=== PATIENT | female | born 1995 | race Caucasian/White ===

== ENCOUNTER 2017-11-25 12:25 | Emergency (ER) | payer OTHER, SELFPAY ==
[2017-11-25 12:42] VITALS: BP 102/59; PULSE 90; RESP 18; TEMP 36.6; O2SAT 100; BMI 21.9
--- NOTE | 2017-11-25 16:17 | ED.URI ---
HPI - URI/Sore Throat <YOUNG Mukherjee - Last Filed: 11/25/17 21:32> General Chief Complaint: Upper Respiratory Symptoms Stated Complaint: I have strep throat Time Seen by Provider: 11/25/17 16:19 Source: patient Mode of arrival: ambulatory Limitations: no limitations History of Present Illness HPI Narrative: 22-year-old female here for complaint of sore throat over the past couple of days. She denies any fevers or chills. She does report that some other people at were her work has similar symptoms. Positive p.o. intake. She states she is tolerating her own secretions. No shortness of breath. She denies any other concerns or complaints at this time. No rashes. MD Complaint: sore throat Related Data Previous Rx's Medication Instructions Recorded dexamethasone [Decadron] 4 mg PO Q12H #2 tab 11/25/17 Allergies Allergy/AdvReac Type Severity Reaction Status Date / Time No Known Drug Allergies Allergy Verified 11/25/17 12:46 Review of Systems <YOUNG Mukherjee - Last Filed: 11/25/17 21:32> Constitutional Denies chills, Denies fever(s), Denies lethargy and Denies weakness Eyes Denies change in vision, Denies eye discharge, Denies irritation and Denies loss of vision ENT Ears, Nose, Mouth, and Throat: Reports sore throat Cardiovascular Denies chest pain, Denies irregular heart rhythm, Denies lightheadedness, Denies palpitations, Denies dyspnea, Denies dyspnea on exertion and Denies orthopnea Respiratory Denies cough, Denies dyspnea, Denies dyspnea on exertion and Denies wheezing Gastrointestinal Gastrointestinal: Denies abdominal pain, Denies change in bowel habits, Denies diarrhea, Denies nausea and Denies vomiting Genitourinary Denies hematuria, Denies flank pain, Denies urinary incontinence and Denies urinary urgency Musculoskeletal Denies back pain, Denies muscle weakness, Denies numbness and Denies tingling Integumentary/Breasts Denies pruritus, Denies erythema, Denies rash and Denies wounds Neurologic Denies confusion, Denies loss of vision, Denies numbness, Denies tingling and Denies weakness Psychiatric Denies anxiety, Denies confusion, Denies depression, Denies homicidal ideation and Denies suicidal ideation Endocrine Denies palpitations Hematologic/Lymphatic Denies easy bruising Allergic/Immunologic Denies wheezing Exam <YOUNG Mukherjee - Last Filed: 11/25/17 21:32> Initial Vital Signs Initial Vital Signs: Vital Signs Temperature 97.8 F 11/25/17 12:42 Pulse Rate 90 11/25/17 12:42 Respiratory Rate 18 11/25/17 12:42 Blood Pressure 102/59 L 11/25/17 12:42 Pulse Oximetry 100 11/25/17 12:42 Const General: cooperative and well developed Nutritional Appearance: well nourished Orientation: alert, awake, oriented x3 and not confused HENVT Mouth: oral mucosae normal and moist mucous membranes Throat: posterior oropharynx abnormal (Erythema to oropharynx area. No exudate.) Eyes Conjunctivae: conjunctivae normal Sclera: sclerae normal Pupils: PERRL EOM: EOM intact bilaterally Resp Effort & Inspection: normal respiratory effort, able to speak in complete sentences, no respiratory distress and no use of accessory muscles Auscultation: clear to auscultation bilaterally, no rales, no rhonchi and no wheezes Cardio Rate: regular rate Rhythm: regular rhythm Heart Sounds: no click, no gallops, no murmurs and no rubs Pulses: normal peripheral pulses Skin General: no rashes or lesions noted, No jaundice and No petechiae Neuro General: alert, oriented x3, gait normal and no focal motor deficits Speech: speech normal <Denilson Larsen MD - Last Filed: 11/26/17 08:43> Initial Vital Signs Initial Vital Signs: Vital Signs Temperature 97.8 F 11/25/17 12:42 Pulse Rate 90 11/25/17 12:42 Respiratory Rate 18 11/25/17 12:42 Blood Pressure 102/59 L 11/25/17 12:42 Pulse Oximetry 100 11/25/17 12:42 Course <YOUNG Mukherjee - Last Filed: 11/25/17 21:32> Orders Ordered: Discontinued Medications Dexamethasone (Decadron) 4 mg PO NOW ONE Stop: 11/25/17 16:27 Last Admin: 11/25/17 16:43 Dose: Not Given Vital Signs - 8 hr 11/25/17 16:39 Pulse Rate 73 Respiratory Rate 15 Blood Pressure [Right Arm] 108/51 L Pulse Oximetry 99 <Denilson Larsen MD - Last Filed: 11/26/17 08:43> Orders Ordered: Discontinued Medications Dexamethasone (Decadron) 4 mg PO NOW ONE Stop: 11/25/17 16:27 Last Admin: 11/25/17 16:43 Dose: Not Given Vital Signs - 8 hr 11/25/17 16:39 Pulse Rate 73 Respiratory Rate 15 Blood Pressure [Right Arm] 108/51 L Pulse Oximetry 99 MDM - URI/Sore Throat <YOUNG Mukherjee - Last Filed: 11/25/17 21:32> [facility] Narrative Medical decision making narrative: Rapid strep test was obtained and was negative. Signs and symptoms presents as a viral illness. [id number] Tylenol or Motrin as needed for any discomfort. Patient requested further medications other than Tylenol or Motrin due to pain with talking she is given dexamethasone tablet today and 1 more for tomorrow 4 mg. Follow up with primary care provider later this week. Plenty of fluids and rest. Return emergency room for any worsening symptoms. Discharge Plan Departure Patient Disposition: Home Clinical Impression: Acute viral pharyngitis Discharge Date/Time: 11/25/17 16:43 Interventions: ED Discharge Assessment Last Done: 11/25/17 16:43 Instructions: DI for Viral Pharyngitis Activity Restrictions/Additional Instructions: Strep test was obtained today and was negative. Signs and symptoms presents as a viral pharyngitis. Use [id number] Tylenol Motrin as needed for any discomfort. Plenty of fluids and rest. Small amount of Decadron to steroid is prescribed use as directed for anti-inflammatory effects. Follow up with your doctor later this week for re-evaluation. For any worsening symptoms return to the emergency room. Prescriptions: New dexamethasone [Decadron] 4 mg tablet 4 mg PO Q12H Qty: 2 RF: 0 Referrals: [facility] [Provider Group] <Denilson Larsen MD - Last Filed: 11/26/17 08:43> Sign Out Provider Sign Out Attestation: The PA/MEAL MILLER functioned independently for the care of this pt, I was available, but not asked to participate in care. I am unable to determine appropriateness of management without personally examining the pt.
--- NOTE | 2017-11-25 16:31 | ED_ITS ---
HPI - URI/Sore Throat <YOUNG Mukherjee - Last Filed: 11/25/17 21:32> General Chief Complaint: Upper Respiratory Symptoms Stated Complaint: I have strep throat Time Seen by Provider: 11/25/17 16:19 Source: patient Mode of arrival: ambulatory Limitations: no limitations History of Present Illness HPI Narrative: 22-year-old female here for complaint of sore throat over the past couple of days. She denies any fevers or chills. She does report that some other people at were her work has similar symptoms. Positive p.o. intake. She states she is tolerating her own secretions. No shortness of breath. She denies any other concerns or complaints at this time. No rashes. MD Complaint: sore throat Related Data Previous Rx's Medication Instructions Recorded dexamethasone [Decadron] 4 mg PO Q12H #2 tab 11/25/17 Allergies Allergy/AdvReac Type Severity Reaction Status Date / Time No Known Drug Allergies Allergy Verified 11/25/17 12:46 Review of Systems <YOUNG Mukherjee - Last Filed: 11/25/17 21:32> Constitutional Denies chills, Denies fever(s), Denies lethargy and Denies weakness Eyes Denies change in vision, Denies eye discharge, Denies irritation and Denies loss of vision ENT Ears, Nose, Mouth, and Throat: Reports sore throat Cardiovascular Denies chest pain, Denies irregular heart rhythm, Denies lightheadedness, Denies palpitations, Denies dyspnea, Denies dyspnea on exertion and Denies orthopnea Respiratory Denies cough, Denies dyspnea, Denies dyspnea on exertion and Denies wheezing Gastrointestinal Gastrointestinal: Denies abdominal pain, Denies change in bowel habits, Denies diarrhea, Denies nausea and Denies vomiting Genitourinary Denies hematuria, Denies flank pain, Denies urinary incontinence and Denies urinary urgency Musculoskeletal Denies back pain, Denies muscle weakness, Denies numbness and Denies tingling Integumentary/Breasts Denies pruritus, Denies erythema, Denies rash and Denies wounds Neurologic Denies confusion, Denies loss of vision, Denies numbness, Denies tingling and Denies weakness Psychiatric Denies anxiety, Denies confusion, Denies depression, Denies homicidal ideation and Denies suicidal ideation Endocrine Denies palpitations Hematologic/Lymphatic Denies easy bruising Allergic/Immunologic Denies wheezing Exam <YOUNG Mukherjee - Last Filed: 11/25/17 21:32> Initial Vital Signs Initial Vital Signs: Vital Signs Temperature 97.8 F 11/25/17 12:42 Pulse Rate 90 11/25/17 12:42 Respiratory Rate 18 11/25/17 12:42 Blood Pressure 102/59 L 11/25/17 12:42 Pulse Oximetry 100 11/25/17 12:42 Const General: cooperative and well developed Nutritional Appearance: well nourished Orientation: alert, awake, oriented x3 and not confused HENTX Mouth: oral mucosae normal and moist mucous membranes Throat: posterior oropharynx abnormal (Erythema to oropharynx area. No exudate. ) Eyes Conjunctivae: conjunctivae normal Sclera: sclerae normal Pupils: PERRL EOM: EOM intact bilaterally Resp Effort & Inspection: normal respiratory effort, able to speak in complete sentences, no respiratory distress and no use of accessory muscles Auscultation: clear to auscultation bilaterally, no rales, no rhonchi and no wheezes Cardio Rate: regular rate Rhythm: regular rhythm Heart Sounds: no click, no gallops, no murmurs and no rubs Pulses: normal peripheral pulses Skin General: no rashes or lesions noted, No jaundice and No petechiae Neuro General: alert, oriented x3, gait normal and no focal motor deficits Speech: speech normal <Denilson Larsen MD - Last Filed: 11/26/17 08:43> Initial Vital Signs Initial Vital Signs: Vital Signs Temperature 97.8 F 11/25/17 12:42 Pulse Rate 90 11/25/17 12:42 Respiratory Rate 18 11/25/17 12:42 Blood Pressure 102/59 L 11/25/17 12:42 Pulse Oximetry 100 11/25/17 12:42 Course <YOUNG Mukherjee - Last Filed: 11/25/17 21:32> Orders Ordered: Discontinued Medications Dexamethasone (Decadron) 4 mg PO NOW ONE Stop: 11/25/17 16:27 Last Admin: 11/25/17 16:43 Dose: Not Given Vital Signs - 8 hr 11/25/17 16:39 Pulse Rate 73 Respiratory Rate 15 Blood Pressure [Right Arm] 108/51 L Pulse Oximetry 99 <Denilson Larsen MD - Last Filed: 11/26/17 08:43> Orders Ordered: Discontinued Medications Dexamethasone (Decadron) 4 mg PO NOW ONE Stop: 11/25/17 16:27 Last Admin: 11/25/17 16:43 Dose: Not Given Vital Signs - 8 hr 11/25/17 16:39 Pulse Rate 73 Respiratory Rate 15 Blood Pressure [Right Arm] 108/51 L Pulse Oximetry 99 MDM - URI/Sore Throat <YOUNG Mukherjee - Last Filed: 11/25/17 21:32> [facility] Narrative Medical decision making narrative: Rapid strep test was obtained and was negative. Signs and symptoms presents as a viral illness. [id number] Tylenol or Motrin as needed for any discomfort. Patient requested further medications other than Tylenol or Motrin due to pain with talking she is given dexamethasone tablet today and 1 more for tomorrow 4 mg. Follow up with primary care provider later this week. Plenty of fluids and rest. Return emergency room for any worsening symptoms. Discharge Plan Departure Patient Disposition: Home Clinical Impression: Acute viral pharyngitis Discharge Date/Time: 11/25/17 16:43 Interventions: ED Discharge Assessment Last Done: 11/25/17 16:43 Instructions: DI for Viral Pharyngitis Activity Restrictions/Additional Instructions: Strep test was obtained today and was negative. Signs and symptoms presents as a viral pharyngitis. Use [id number] Tylenol Motrin as needed for any discomfort. Plenty of fluids and rest. Small amount of Decadron to steroid is prescribed use as directed for anti-inflammatory effects. Follow up with your doctor later this week for re-evaluation. For any worsening symptoms return to the emergency room. Prescriptions: New dexamethasone [Decadron] 4 mg tablet 4 mg PO Q12H Qty: 2 RF: 0 Referrals: [facility] [Provider Group] <Denilson Larsen MD - Last Filed: 11/26/17 08:43> Sign Out Provider Sign Out Attestation: The PA/JINRIKSHA DRIVER functioned independently for the care of this pt, I was available, but not asked to participate in care. I am unable to determine appropriateness of management without personally examining the pt.
[2017-11-25 16:39] VITALS: BP 108/51; PULSE 73; RESP 15; O2SAT 99
== END 2017-11-25 16:43 | disposition home or self-care (01) ==
PROVIDERS: Emergency Provider Nurse Practitioner Family
DX: J02.9 Acute pharyngitis, unspecified (principal)
CPT/HCPCS: 87880; 99282; 99283